=== PATIENT | male | born 1955 | race African-American/Black ===

== ENCOUNTER 2018-08-20 07:41 | Day surgery (SDC) | payer OTHER ==
[2018-08-13 13:48] VITALS: BMI 27.3
[2018-08-20] MEDS ORDERED: PROPOFOL 20 ML ONE ×2 (08:46)
[2018-08-20 09:41] VITALS: TEMP 97.9
[2018-08-20 10:24] VITALS: BP 114/69; PULSE 69
--- NOTE | 2018-08-23 11:16 | PATH ---
Surgical Pathology Report Patient Name: AVNI WREN [facility]. Rec. #: [id number] /Age/Gender: 1955 (Age: 63) / M Account: [id number] Location: [facility] Taken: 08/20/2018 Received: 08/20/2018 Reported: 08/23/2018 Physicians: Rufus Eaton M.D. Specimen(s) Received A: HOT SNARE POLYPECTOMY HEPATIC FLEXURE B: HOT SNARE POLYPECTOMY RIGHT COLON Clinical History Screening Postoperative diagnosis: Polyps Final Diagnosis A. HEPATIC FLEXURE, HOT SNARE POLYPECTOMY: HYPERPLASTIC POLYP. B. RIGHT COLON, HOT SNARE POLYPECTOMY: TUBULAR ADENOMA. Electronically Signed Yue Rivera M.D. Gross Description A. Received in formalin, labeled "hot snare polypectomy hepatic flexure" is a haddad, irregular portion of soft tissue measuring 0.2 cm. in greatest dimension. The specimen is submitted in toto in one cassette. B. Received in formalin, labeled "right colon hot snare polypectomy" is a haddad, irregular portion of soft tissue measuring 0.7 cm. in greatest dimension. The specimen is submitted in toto in one cassette. MLSZ/08/21/2018 sanml/08/21/2018
== END 2018-08-20 10:10 | disposition home or self-care (01) ==
LOC: FASU-ENDO 07:41
PROVIDERS: ATTEND Internal Medicine Gastroenterology
PROC: 0DBL8ZX Excision of Transverse Colon, Via Natural or Artificial Opening Endoscopic, Diagnostic (ICD-10-PCS; 2018-08-20)
PROC: 0DBK8ZX Excision of Ascending Colon, Via Natural or Artificial Opening Endoscopic, Diagnostic (ICD-10-PCS; principal; 2018-08-20 09:04)
DX: Z12.11 Encounter for screening for malignant neoplasm of colon (principal); D12.2 Benign neoplasm of ascending colon; K63.5 Polyp of colon
CPT/HCPCS: 88305-TC